=== PATIENT | female | born 1945 | race Native Hawaiian/Other Pacific Islander ===

== ENCOUNTER 2017-03-30 16:00 | Outpatient (CLI) | payer MEDICARE, OTHER | END 2017-03-30 16:01 | disposition home or self-care (01) | LOC: LABHHL 16:00 | PROVIDERS: ATTEND Surgery | DX: C50.912 Malignant neoplasm of unspecified site of left female breast (principal) | CPT/HCPCS: 88305; 88361 ==

== ENCOUNTER 2017-04-11 06:06 | Day surgery (SDC) | payer MEDICARE ==
[~2017-04-11 06:06] MED LIST: HEPARIN 10,000 UNITS/10 ML IV ONE; MARCAINE 0.25% INFILTRATI ONE; NACL 0.9% IR ONE; NACL 0.9% IV ONE; XYLOCAINE 1% 20 mL INFILTRATI ONE
[2017-04-11] MEDS ORDERED: XYLOCAINE 1% 20 mL ONE ×2 (07:08→09:48)
[2017-04-11] MEDS ORDERED: NACL 0.9% 100 ML ONE ×2 (07:09→09:49)
[2017-04-11] MEDS ORDERED: MARCAINE 0.25% INFILTRATI ONE ×3 (07:09→10:21)
[2017-04-11] MEDS ORDERED: HEPARIN 10,000 UNITS/10 ML ONE ×2 (07:09→09:48)
[2017-04-11] MEDS ORDERED: DIPRIVAN 10 MG/ML IV ONE ×2 (07:27→09:23)
[2017-04-11] MEDS ORDERED: NACL BACTERIOSTATIC INFILTRATI ONE (08:18)
--- NOTE | 2017-04-11 08:53 | Anesthesia Day of Surgery ---
Anesthesia Day of Surgery - Day of Surgery Patient Examined: Yes Patient H&P Reviewed: Yes Patient is NPO: Yes
--- NOTE | 2017-04-11 08:53 | Anesthesia Consultation ---
Anesthesia Consult and Med Hx Date of service: 04/11/17 - Airway Anesthetic Teeth Evaluation: Good ROM Head & Neck: Adequate Mental/Hyoid Distance: Adequate Mallampati Class: Class II Intubation Access Assessment: Probably Good - Pulmonary Exam CTA: Yes - Cardiac Exam Cardiac Exam: RRR - Pre-Operative Health Status ASA Pre-Surgery Classification: ASA2 Proposed Anesthetic Plan: MAC - Pulmonary Hx Smoking: Yes (quit 10 yrs) - Central Nervous System Hx Psychiatric Problems: No - Other Systems Hx Alcohol Use: No Hx Substance Use: No Hx Cancer: Yes
[2017-04-11] MEDS ORDERED: PEPCID PO NR (09:00)
[2017-04-11] MEDS ORDERED: NACL 0.9% 1000 ML 1,000 ML IV SCH (09:00)
[2017-04-11] MEDS ORDERED: ANCEF/STERILE WATER 2 GM/20 ML IV NR (09:00)
[2017-04-11] MEDS ORDERED: VERSED IV NR (09:00)
[2017-04-11] MEDS ORDERED: SUBLIMAZE ONE (09:20)
[2017-04-11] MEDS ORDERED: XYLOCAINE MPF 2% ONE (09:30)
[2017-04-11] MEDS ORDERED: XYLOCAINE 1% 20 mL INFILTRATI ONE (10:21)
[2017-04-11] MEDS ORDERED: HEPARIN 10,000 UNITS/10 ML IV ONE ×2 (10:33→10:41)
[2017-04-11] MEDS ORDERED: NACL 0.9% IV ONE (10:33)
[2017-04-11] MEDS ORDERED: ZOFRAN ONE (10:38)
[2017-04-11] MEDS ORDERED: NACL 0.9% IR ONE (10:41)
--- NOTE | 2017-04-11 11:05 | Short Stay Summary ---
Short Stay Documentation Date of service: 04/11/17 Narrative H&P: 71 yo F with recently diagnosed left breast cancer presents for insertion of port for initiation of chemotherapy. She has no complaints. - Allergies and Medications Current Medications: Allergies Sulfa (Sulfonamide Antibiotics) Allergy (Verified 04/10/17 08:40) Nausea Home Medications Medication Instructions Recorded Confirmed Last Taken Type Pravastatin Sodium [Pravastatin] 20 mg PO QHS 04/10/17 04/11/17 04/10/17 History Active Medications Cefazolin Sodium (Ancef/Sterile Water 2 Gm/20 Ml) 2 gm IV PREOP NR Stop: 04/11/17 15:00 Famotidine (Pepcid) 20 mg PO PREOP NR Stop: 04/11/17 12:00 Last Admin: 04/11/17 09:16 Dose: 20 mg Sodium Chloride (Nacl 0.9% 1000 Ml) 1,000 mls @ 100 mls/hr IV DIRECT MOR Last Admin: 04/11/17 09:17 Dose: 100 mls/hr Midazolam HCl (Versed) 2 mg IV PREOP NR Stop: 04/11/17 23:59 Last Admin: 04/11/17 09:19 Dose: 2 mg - Physical exam General appearance: no acute distress Lungs: Clear to auscultation Heart: Regular rate, Normal S1, Normal S2, No murmurs Gastrointestinal: normal Extremities: No edema Neurological: Normal speech - Brief post op/procedure progress note Date of procedure: 04/11/17 Pre-op diagnosis: left breast cancer Procedure: Placement of right subclavian infusaport Anesthesia: MAC, local Findings: dark red nonpulsatile blood return on first stick. CXR post op reviewed -> port in good position, no PTX Surgeon: CALE ARROYO [employer] Professor: MALCOM LIANG Estimated blood loss: minimal Pathology: none Condition: stable - Hospital course Hospital course: patient was discharged from PACU to home in stable condition. - Disposition Condition at discharge: Good Disposition: DC-01 TO HOME OR SELFCARE - Discharge Diagnoses (1) Breast cancer Status: Acute Qualifiers: Breast location: B Estrogen receptor status: E Patient sex: P Laterality: L Short Stay Discharge Plan Activity: other (no baths, hottubs, pools until all incisions heal. May shower tomorrow with soap and water, do not scrub incision but pat them dry. Avoid heavy lifting with right arm if having soreness/pain.) Diet: regular Wound: open to air, other (the skin glue on the incisions will fall of on its own.) Follow up with: PRIMARY MD KAUSHIK [Primary Care Provider] - 7 Days CALE ARROYO MD [Staff Physician] - 7 Days
--- NOTE | 2017-04-11 11:20 | Fluoroscopy Report ---
AP chest x-ray. History: Breast cancer. Findings: The heart and pulmonary vessels are normal. The lungs are clear. There is no pleural fluid. A right [id number] catheter terminates in the lower SVC region. Impression: No acute findings.
[2017-04-11] MEDS ORDERED: NORCO 5/325 PO PRN (12:00)
[2017-04-11 13:28] VITALS: BP 162/70
--- NOTE | 2017-04-11 15:55 | Operative Report ---
Operative Report Operative Report: Date of Service: April 11, 2017 Preoperative diagnosis: Leftt breast cancer of the subareolar in need of central venous access Postoperative diagnosis: Same Procedure: Right port placement under fluoroscopy guidance Surgeon: Lola Hein.: Dr. Sen Anesthesia: Local Mac Findings: Right port placement in good position with placement confirmed under fluoroscopy guidance Complications: None Estimated blood loss: Minimal Disposition: PACU in good condition Indications for operative procedure: This is a 71-year-old lady with advanced stage left breast cancer of the subareolar. Recommendations are to proceed with neoadjuvant chemotherapy. Patient in need of central venous access to start chemotherapy. Procedure in detail: The patient was taken to the operating room and was laid supine. Local Mac anesthesia was administered. Bilateral neck and chest were prepped and draped in the normal sterile operative fashion. Timeout was performed. Sternal notch including right pectoral groove was identified. The area for central venous access was anesthetized with 1% lidocaine. The right sublcavian vein was accessed with the syringe and needle attached and good backflow of blood was noted. Wire was introduced through the needle. Placement of wire was confirmed under fluoroscopy guidance. A skin incision was then made at wire insertion site with a 15 blade knife after the skin was appropriately anesthetized. Bovie cautery was used to create the pocket for port placement. Dilator and sheath were then threaded through the wire in Seldinger technique. The wire and dilator were then removed. The catheter was then inserted through the sheath without incident. The catheter was tested with good backflow of blood and placement confirmed under flouroscopy. The sheath was then peeled back. The catheter was cut to size. The catheter was then attached to the port. The port was placed in the appropriate pocket that was created. The port was tested with good backflow of blood noted. Fluoroscopy was performed with port in good placement and no concerns for a pneumothorax. The port was sutured into place. The port was flushed with heparin. The skin incision was then approximated and closed using interrupted 3-0 Vicryl and then closed using a running 4-0 Monocryl and skin affix. Upright chest x-ray performed in operating room with port in good placement and no signs of pneumothorax. She tolerated surgery very well and was awakened from anesthesia and transported to PACU in good condition.
--- NOTE | 2017-04-11 18:41 | Post Anesthesia Evaluation ---
- Post Anesthesia Evaluation Patient Participated: Yes Airway Patent: Yes Stable Respiratory Function: Yes Nausea/Vomiting: No Temp > 96.8F: Yes Pain Manageable: Yes Adequeate Hydration: Yes Anesthesia Complications: No Block Receding Appropriately: Not Applicable Patient on Ventilator: No
== END 2017-04-11 11:45 | disposition home or self-care (01) ==
LOC: OR 06:06
PROVIDERS: ATTEND Surgery
DX: C50.012 Malignant neoplasm of nipple and areola, left female breast (principal); Z87.891 Personal history of nicotine dependence; Z88.2 Allergy status to sulfonamides
CPT/HCPCS: 36561; 77001; C1788; J0690; J1644; J2250; J2405; J2704; J3010; J7030

== ENCOUNTER 2017-11-13 10:24 | Outpatient (CLI) | payer MEDICARE ==
--- NOTE | 2017-11-13 11:06 | Mammography Report ---
LEFT DIGITAL DIAGNOSTIC MAMMOGRAM with CAD: 11/13/17 10:24:00 CLINICAL: Known left breast cancer.Followup after chemotherapy. COMPARISON:03/30/17 FINDINGS: The nipple is retracted and there is a persistent retroareolar mass with a few malignant calcifications and a biopsy clip. However, the mass is significantly lower in density and has poorly defined margins compared to the prior exam. IMPRESSION: A partial mammographic response to chemotherapy. BI-RADS CATEGORY: 6--Known Cancer ACR BI-RADS MAMMOGRAPHIC CODES: 0 = Needs additional imaging evaluation; 1 = Negative; 2 = Benign; 3 = Probably benign; 4 = Suspicious; 5 = Malignant; 6 = Known biopsy-proven malignancy COMMENT: 1. Dense breast tissue, i.e., adenosis, fibrocystic changes, etc., may obscure an underlying neoplasm. 2. Approximately 10% of cancers are not detected with mammography. 3. A negative mammography report should not delay biopsy if a clinically suspicious mass is present. COMMENT: Patient follow-up letters are generated by our [employer] application.
== END 2017-11-13 10:25 | disposition home or self-care (01) ==
LOC: SPVWC 10:24
PROVIDERS: ATTEND Surgery
DX: C50.912 Malignant neoplasm of unspecified site of left female breast (principal); N64.53 Retraction of nipple

== ENCOUNTER 2017-12-05 09:11 | Observation (INO) | payer MEDICARE ==
[2017-12-05] MEDS ORDERED: ANCEF/STERILE WATER 2 GM/20 ML IV NR (10:00)
[2017-12-05] MEDS ORDERED: ANCEF/STERILE WATER 2 GM/20 ML 2 GM/20 ML SYRINGE IV NR (11:00)
--- NOTE | 2017-12-05 11:37 | Anesthesia Day of Surgery ---
Anesthesia Day of Surgery - Day of Surgery Patient Examined: Yes Patient H&P Reviewed: Yes Patient is NPO: Yes
--- NOTE | 2017-12-05 11:37 | Anesthesia Consultation ---
Anesthesia Consult and Med Hx Date of service: 12/05/17 - Airway Anesthetic Teeth Evaluation: Chipped, Caps, Crowns ROM Head & Neck: Adequate Mental/Hyoid Distance: Adequate Mallampati Class: Class I Intubation Access Assessment: Good - Pulmonary Exam CTA: Yes - Cardiac Exam Cardiac Exam: No Murmur - Pre-Operative Health Status ASA Pre-Surgery Classification: ASA2 Proposed Anesthetic Plan: General - Pre-Anesthesia Comment Pre-Anesthesia Comments: patient tolerates 6 METS. no chest pain or SOB. no cold or flu. h/o motion sickness - Pulmonary Hx Smoking: Yes (quit 10 yrs) - Central Nervous System Hx Psychiatric Problems: No - Other Systems Hx Alcohol Use: No Hx Substance Use: No Hx Cancer: Yes
[2017-12-05] MEDS ORDERED: TYLENOL PO PRN ×3 (11:38→16:03)
[2017-12-05] MEDS ORDERED: PERCOCET 5/325 PO PRN ×2 (11:38→15:58)
[2017-12-05] MEDS ORDERED: NARCAN 0.4 MG/1 ML IV PRN (11:38)
[2017-12-05] MEDS ORDERED: DILAUDID IV PRN (11:38)
[2017-12-05] MEDS ORDERED: TORADOL IV PRN (11:38)
[2017-12-05] MEDS ORDERED: DEMEROL IV PRN (11:38)
[2017-12-05] MEDS ORDERED: ZOFRAN IV PRN ×3 (11:38→16:03)
[2017-12-05] MEDS ORDERED: NAROPIN O.5% ONE (11:43)
[2017-12-05] MEDS ORDERED: VERSED ONE (11:43)
[2017-12-05] MEDS ORDERED: SUBLIMAZE ONE (11:44)
[2017-12-05] MEDS ORDERED: XYLOCAINE MPF 2% ONE (11:51)
[2017-12-05] MEDS ORDERED: GARAMYCIN ONE (11:52)
[2017-12-05] MEDS ORDERED: DIPRIVAN 10 MG/ML IV ONE (11:52)
[2017-12-05] MEDS ORDERED: BACITRACIN ONE (11:54)
[2017-12-05] MEDS ORDERED: LACTATED RINGERS 1,000 ML IV SCH ×2 (12:00→16:00)
[2017-12-05] MEDS ORDERED: NACL 0.9% 1000 ML IR ONE (12:15)
[2017-12-05] MEDS ORDERED: BACITRACIN IR ONE (12:15)
[2017-12-05] MEDS ORDERED: WATER FOR IRRIG STERILE IR ONE (12:15)
[2017-12-05] MEDS ORDERED: GARAMYCIN IV ONE (12:15)
[2017-12-05] MEDS ORDERED: ANCEF IV ONE (12:15)
[2017-12-05] MEDS ORDERED: METHYLENE BLUE IRRIGATION ONE (12:15)
[2017-12-05] MEDS ORDERED: METHYLENE BLUE IV ONE (12:15)
[2017-12-05] MEDS ORDERED: METHYLENE BLUE ONE (12:37)
[2017-12-05] MEDS ORDERED: NACL 0.9% 1000 ML 1,000 ML ONE ×2 (12:39→15:02)
--- NOTE | 2017-12-05 15:28 | Operative Report ---
Operative Report Operative Report: Date of Service: December 06, 2017 Preoperative diagnosis: Left breast cancer of the nipple areolar complex Postoperative diagnosis: Same Procedure: Left total mastectomy with sentinel lymph node biopsy Surgeon: Lola Roth M.D. Asst.: Denis Palm Anesthesia: Gen. Findings: Left total mastectomy. 3 sentinel lymph nodes identified and negative for malignancy on frozen section of pathology Complications: None Drains: Per plastic surgery Estimated blood loss: Minimal Disposition:Plastic surgery proceeded with left tissue personal banking officer placement Indications for operative procedure: This is a 72-year-old lady with stage III left breast cancer of the nipple areolar complex. She recently completed neoadjuvant chemotherapy. Recommendations were to proceed with total mastectomy given location of breast cancer mass. Patient wish to proceed with plastic reconstructive surgery with immediate tissue personal banking officer placement. Procedure in detail: Anesthesia placed left pectoral muscle block prior to going to the operating room. The patient was taken to the operating room and was placed supine. Gen. anesthesia was administered. The left nipple was injected with radioisotope and 1 cc of methylene blue. The known left breast cancer was involving the nipple areolar complex with prior skin involvement. The left breast was prepped and draped in the normal sterile operative fashion. Timeout was performed. Typical mastectomy incision markings were made including wide margins around the NAC with inferior incision taken close to the inframammary fold given breast cancer location. Attention was taken towards the left breast. A gamma probe was inserted into the axilla to identify the sentinel lymph node location with uptake noted. A skin incision was made with a 10 blade knife and dissection taken down to the subcutaneous tissues. First began raising of the superior flap to the level of the clavicle superiorly and posteriorly to the pectoralis muscle. Followed by raising of the medial flap to the level of the sternum and posteriorly to the pectoralis muscle. Followed by raising of the lateral flap to the level of the latissimus dorsi muscle and taken down posteriorly. The gamma probe was inserted into the axilla and the axillary fascia was opened with the bovie cautery. 4 sentinel lymph nodes were identified with the gamma probe, with blue dye present in one node, all remaining counts were less than 10% of the highest SLN. No bulkly lymph nodes noted in the axilla. Lymph nodes were sent to pathology with findings negative for malignancy noted on frozen section of 3 lymph nodes and the fourth node not able to be immediately processed given it fell into the processor in the pathology department and would have to be sent for permanent processing. Then proceeded with raising of the inferior flap to the level of the inframammary fold taken posterior to the pectoralis muscle. The mastectomy/breast was removed from the pectoralis muscle without incident. The specimen was appropriately marked and sent to pathology. Hemostasis was obtained with the bovie cautery. Plastic surgery then proceeded with left tissue personal banking officer placement.
[2017-12-05] MEDS ORDERED: ZOFRAN ONE (15:54)
[2017-12-05] MEDS ORDERED: SODIUM CHLORIDE FLUSH SYRINGE 10 ML IV PRN (15:58)
[2017-12-05] MEDS ORDERED: REGLAN PO PRN (15:58)
[2017-12-05] MEDS ORDERED: BENADRYL PO PRN (15:58)
--- NOTE | 2017-12-05 15:58 | Post Operative Note ---
Pre-op diagnosis: left breast cancer Post-op diagnosis: same Findings: left breast mastectomy defect Procedure: left breast reconstruction with automation qa tester and biologic mesh, excision of benign skin lesions from chest Anesthesia: NAMITA Surgeon: MANDO CARRIZALES Estimated blood loss: none Pathology: list (skin lesion x 2) Specimen disposition: to lab Condition: stable Disposition: PACU
[2017-12-05] MEDS ORDERED: FLEXERIL PO PRN (16:00)
[2017-12-05] MEDS: DILAUDID IV PRN ×2 (16:05→16:15)
[2017-12-05] MEDS: SUBLIMAZE IV PRN ×2 (16:39→16:50)
[2017-12-05] MEDS: APRESOLINE IV PRN ×2 (18:05→18:14)
[2017-12-05] MEDS: NEURONTIN PO SCH (21:29)
[2017-12-05] MEDS: COLACE PO SCH (21:29)
[2017-12-05] MEDS: ANCEF/STERILE WATER 2 GM/20 ML 2 GM/20 ML SYRINGE IV SCH (21:36)
[2017-12-05] MEDS ORDERED: ceFAZolin 2 GM in NACL 0.9% 100 ML IV SCH (22:00)
[2017-12-06] MEDS: NEURONTIN PO SCH ×2 (05:56→14:16)
[2017-12-06] MEDS: ANCEF/STERILE WATER 2 GM/20 ML 2 GM/20 ML SYRINGE IV SCH (05:57)
[2017-12-06] MEDS ORDERED: ROXICODONE PO PRN (06:27)
--- NOTE | 2017-12-06 06:27 | Progress Note ---
Assessment and Plan POD 1 s/p left breast recon and mastectomy -ADAT -Ambulate -DC planning for later this morning Subjective Date of service: 12/06/17 Narrative: doing well, pain controlled, uncomfortable when getting up and moving. Urinating, eating, no nausea. Objective Vital Signs - 12hr 12/05/17 12/05/17 12/05/17 18:30 18:45 19:10 Temperature 98.0 F 97.7 F Pulse Rate 88 84 103 H Pulse Rate [ Apical] Respiratory 13 13 18 Rate Blood Pressure 131/60 128/55 128/45 Blood Pressure [Left] O2 Sat by Pulse 100 100 99 Oximetry 12/05/17 12/05/17 12/05/17 19:20 19:40 23:36 Temperature 99.2 F 99.7 F H Pulse Rate 100 H 107 H Pulse Rate [ 89 Apical] Respiratory 18 16 18 Rate Blood Pressure Blood Pressure 128/45 112/55 [Left] O2 Sat by Pulse Oximetry - General physical appearance Narrative Exam: Surgical site c/d/i, no hematoma or seroma. Skin with some bruising. Drains are serosang. TEDDY with good suction
[2017-12-06] MEDS: COLACE PO SCH (10:31)
[2017-12-06] MEDS: ROXICODONE PO PRN ×2 (10:32→14:15)
[2017-12-06 13:15] VITALS: BP 118/55
== END 2017-12-06 15:15 | disposition home or self-care (01) ==
LOC: OR 09:11 → OB 15:58
PROVIDERS: ADMIT Surgery; ATTEND Surgery
DX: C50.012 Malignant neoplasm of nipple and areola, left female breast (principal)
CPT/HCPCS: 19303; 78800; 88305; 88307; 88309; 88331; 88341; 88342; 88361; 96374; 96375; 96376; A9541; C1789; G0378; J0360; J0690; J1170; J1580; J2250; J2405; J2704; J2795; J3010; J7030; J7120; Q4128; Q9968; 88333

== ENCOUNTER → 2018-02-19 | Outpatient (CLI) | payer MEDICARE ==
--- NOTE | 2018-02-19 09:35 | Mammography Report ---
RIGHT DIGITAL DIAGNOSTIC MAMMOGRAM WITH CAD: 02/19/18 08:54:00 CLINICAL: History of left breast cancer status post left mastectomy. COMPARISON:03/30/18 FINDINGS: The breasts is heterogeneously dense, which may obscure small masses.No mass, suspicious architectural distortion or suspicious calcifications. IMPRESSION: No mammographic evidence of malignancy. BI-RADS CATEGORY: 1 -- Negative RECOMMENDATION: Routine screening in one year. ACR BI-RADS MAMMOGRAPHIC CODES: 0 = Needs additional imaging evaluation; 1 = Negative; 2 = Benign; 3 = Probably benign; 4 = Suspicious; 5 = Malignant; 6 = Known biopsy-proven malignancy COMMENT: 1. Dense breast tissue, i.e., adenosis, fibrocystic changes, etc., may obscure an underlying neoplasm. 2. Approximately 10% of cancers are not detected with mammography. 3. A negative mammography report should not delay biopsy if a clinically suspicious mass is present. COMMENT: Patient follow-up letters are generated via our [email or web address] Nurse Navigator application.
== END | disposition home or self-care (01) ==
LOC: SPVWC 08:54
PROVIDERS: ATTEND Surgery
DX: R92.8 Other abnormal and inconclusive findings on diagnostic imaging of breast (principal); E78.00 Pure hypercholesterolemia, unspecified; Z88.2 Allergy status to sulfonamides; Z88.8 Allergy status to other drugs, medicaments and biological substances; Z90.89 Acquired absence of other organs

== ENCOUNTER 2019-02-25 10:07 | Outpatient (CLI) | payer MEDICARE ==
--- NOTE | 2019-02-25 10:52 | Mammography Report ---
RIGHT DIGITAL SCREENING MAMMOGRAM WITH CAD INDICATION: Routine screening mammography. Breast cancer survivor status post left mastectomy. TECHNIQUE: Digital bilateral 2D mammography was obtained in the craniocaudal and mediolateral obliq ue projections. This examination was interpreted with the benefit of Computer-Aided Detection analysi s. COMPARISON: 02/19/2018 FINDINGS: Breast Density: The breast is heterogeneously dense, which may obscure small masses. No mass, architectural distortion or suspicious calcifications. IMPRESSION:No mammographic evidence of malignancy. BI-RADS Category 1: Negative. No mammographic evidence of malignancy. Recommend routine screening m ammography in one year. A "normal" or negative report should not discourage follow up or biopsy of a clinically significant f inding. A written summary of these findings will be mailed to the patient. The patient will be entered into a mammography reporting system which will generate a reminder letter for the patient's next appointmen t at the appropriate interval. The [employer] recommends yearly mammograms starting at age 40 and continuing as l estuardo as a woman is in good health. Breast MRI is recommended for women with an approximate 20-25% or greater lifetime risk of breast cancer, including women with a strong family history of breast or ova libertad cancer or who have been treated for Hodgkin's disease. Signer Name: Dalton Villarreal MD Signed: 02/25/2019 10:48 AM Workstation Name: [id number]
== END 2019-02-25 10:08 | disposition home or self-care (01) ==
LOC: SPVWC 10:07
PROVIDERS: ATTEND Surgery
DX: Z12.31 Encounter for screening mammogram for malignant neoplasm of breast (principal); E78.00 Pure hypercholesterolemia, unspecified

== ENCOUNTER 2021-03-31 10:15 | Outpatient (CLI) | payer MEDICARE ==
--- NOTE | 2021-04-01 07:46 | Mammography Report ---
DIGITAL SCREENING MAMMOGRAM WITH CAD, 03/31/2021 CLINICAL INFORMATION / INDICATION: Routine screening mammography. SCREENING MAMMO TECHNIQUE: Digital right 2D mammography was obtained in the craniocaudal and mediolateral oblique pr ojections. This examination was interpreted with the benefit of Computer-Aided Detection analysis. COMPARISON: 03/29/2020 FINDINGS: Breast Density: The breasts are extremely dense, which lowers the sensitivity of mammography. No dominant mass, suspicious calcifications, or architectural distortion in the right breast. IMPRESSION: No mammographic evidence of malignancy. Follow up recommendation: Routine yearly BI-RADS Category 1: Negative. A "normal" or negative report should not discourage follow up or biopsy of a clinically significant f inding. A written summary of these findings will be mailed to the patient. The patient will be entered into a mammography reporting system which will generate a reminder letter for the patient's next appointmen t at the appropriate interval. The [employer] recommends yearly mammograms starting at age 40 and continuing as l estuardo as a woman is in good health. Breast MRI is recommended for women with an approximate 20-25% or greater lifetime risk of breast cancer, including women with a strong family history of breast or ova libertad cancer or who have been treated for Hodgkin's disease. Signer Name: Mayank Rico MD Signed: 04/01/2021 7:42 AM Workstation Name: [id number]
== END 2021-03-31 10:16 | disposition home or self-care (01) ==
LOC: SPVWC 10:15
PROVIDERS: ATTEND Surgery
DX: Z12.31 Encounter for screening mammogram for malignant neoplasm of breast (principal)
CPT/HCPCS: 77067